=== PATIENT | female | born 1945 | race Caucasian/White ===

== ENCOUNTER → 2024-09-07 | Outpatient (CLI) | payer MEDICARE, OTHER ==
[2024-09-07 13:13] LABS: BASOPHILS ABSOLUTE AUTO 0.03 K/mm3 (0.00-0.23); BASOPHILS PERCENT AUTO 1 % (0-2); EOSINOPHILS ABSOLUTE AUTO 0.28 K/mm3 (0.00-0.68); EOSINOPHILS PERCENT AUTO 6 % (0-6); Hematocrit 40.4 % (33.0-51.0); Hemoglobin 13.5 g/dL (11.5-16.0); IMMATURE GRAN ABSOLUTE AUTO 0.01 K/mm3 (0.00-0.10); IMMATURE GRAN PERCENT AUTO 0 % (0-1); LYMPHOCYTES ABSOLUTE AUTO 1.13 K/mm3 (0.84-5.20); LYMPHOCYTES PERCENT AUTO 23 % (21-46); MONOCYTES ABSOLUTE AUTO 0.31 K/mm3 (0.16-1.47); MONOCYTES PERCENT AUTO 6 % (4-13); Mean Corpuscular HGB 30.3 pg (26.0-34.0); Mean Corpuscular HGB Conc 33.4 g/dL (31.5-36.5); Mean Corpuscular Volume 91 fL (80-100); Mean Platelet Volume 8.5 fL (9.1-12.4); NEUTROPHILS ABSOLUTE AUTO 3.14 K/mm3 (1.96-9.15); NEUTROPHILS PERCENT AUTO 64 % (41-73); Platelet Count 191 K/mm3 (150-400); RDW Coefficient Variation 12.1 % (11.7-14.2); Red Blood Cell Count 4.45 M/mm3 (3.80-5.20)
[2024-09-07 13:22] LABS: Albumin, Blood 3.8 g/dL (3.4-5.0); Albumin/Globulin Ratio 1.2 (0.8-1.8); Bilirubin, Total 0.4 mg/dL (0.1-1.0); Bun/Creatinine Ratio 10.3 (12.0-20.0); Creatinine, Blood 1.16 mg/dL (0.40-1.00); Globulin, Blood 3.2 g/dL (2.2-4.0); Potassium, Blood 3.8 mmol/L (3.5-5.5)
== END | disposition home or self-care (01) ==
LOC: LAB 13:08 → LAB SHORT 13:08
DX: K92.1 Melena (principal); R33.9 Retention of urine, unspecified
CPT/HCPCS: 80053; 83690; 85025; 87077; 87086; 87186

== ENCOUNTER 2024-11-10 09:43 | Day surgery (SDC) | payer MEDICARE, OTHER ==
[~2024-11-10] VITALS: Ht 157.5 cm; Wt 69.3 kg
[~2024-11-10 09:43] MED LIST: Lactated Ringer's 1,000 ML IV ONE; propofoL 50 ML IV ONE
[2024-11-10] MEDS ORDERED: Lactated Ringer's 1,000 ML IV ONE (10:21)
[2024-11-10] MEDS ORDERED: HYDCHL25 (10:34)
[2024-11-10] MEDS ORDERED: GABA600 (10:34)
[2024-11-10] MEDS ORDERED: THYR60 (10:35)
[2024-11-10] MEDS ORDERED: TIZA4 (10:37)
[2024-11-10] MEDS ORDERED: OMEP20ER PO (10:38)
[2024-11-10] MEDS ORDERED: Bentyl10 MG (10:40)
== END 2024-11-10 12:18 | disposition home or self-care (01) ==
LOC: ORSCSDS 09:43
PROVIDERS: Specialist
PROC: 0DB78ZX Excision of Stomach, Pylorus, Via Natural or Artificial Opening Endoscopic, Diagnostic (ICD-10-PCS; principal; 2024-11-10 11:15)
PROC: 0DB98ZX Excision of Duodenum, Via Natural or Artificial Opening Endoscopic, Diagnostic (ICD-10-PCS; principal; 2024-11-10 11:15)
PROC: 0DBE8ZX Excision of Large Intestine, Via Natural or Artificial Opening Endoscopic, Diagnostic (ICD-10-PCS; principal; 2024-11-10 11:15)
DX: R19.7 Diarrhea, unspecified (principal); K92.1 Melena; Z86.0101 Personal history of adenomatous and serrated colon polyps; Z80.0 Family history of malignant neoplasm of digestive organs; K21.9 Gastro-esophageal reflux disease without esophagitis; R10.12 Left upper quadrant pain; R10.13 Epigastric pain; R11.2 Nausea with vomiting, unspecified; R93.3 Abnormal findings on diagnostic imaging of other parts of digestive tract; K44.9 Diaphragmatic hernia without obstruction or gangrene; L53.9 Erythematous condition, unspecified; K64.8 Other hemorrhoids; Z79.899 Other long term (current) drug therapy; J44.9 Chronic obstructive pulmonary disease, unspecified; Z85.850 Personal history of malignant neoplasm of thyroid
CPT/HCPCS: 88305; 88342; J2704; J7120

== ENCOUNTER 2025-04-26 10:15 | Emergency (ER) | payer MEDICARE, OTHER ==
[~2025-04-26] VITALS: Ht 154.9 cm; Wt 65.8 kg
[~2025-04-26 10:15] MED LIST changes: +Bentyl10 MG; +GABA600; +HYDCHL25; -Lactated Ringer's 1,000 ML IV ONE; +OMEP20ER PO; +THYR60; +TIZA4; -propofoL 50 ML IV ONE
[2025-04-26 10:47] LABS: Calcium, Ionized (POC) 1.16 mmol/L (1.10-1.46); Chloride (POC) 101 mmol/L (98-108); Creatinine (POC) 0.9 mg/dL (0.6-1.0); Glucose (ISTAT POC) 104 mg/dL (70-99); Hematocrit (POC) 42.0 % (36.0-46.0); Hemoglobin (POC) 14.3 g/dL (12.0-16.0); Potassium (POC) 3.5 mmol/L (3.5-5.5); Sodium (POC) 140 mmol/L (135-148); Total CO2 (POC) 26 mmol/L (21-32)
[2025-04-26 10:51] LABS: BASOPHILS ABSOLUTE AUTO 0.04 K/mm3 (0.00-0.23); BASOPHILS PERCENT AUTO 1 % (0-2); EOSINOPHILS ABSOLUTE AUTO 0.35 K/mm3 (0.00-0.68); EOSINOPHILS PERCENT AUTO 5 % (0-6); Hematocrit 42.9 % (33.0-51.0); Hemoglobin 14.7 g/dL (11.5-16.0); IMMATURE GRAN ABSOLUTE AUTO 0.02 K/mm3 (0.00-0.10); IMMATURE GRAN PERCENT AUTO 0 % (0-1); LYMPHOCYTES ABSOLUTE AUTO 2.26 K/mm3 (0.84-5.20); LYMPHOCYTES PERCENT AUTO 31 % (21-46); MONOCYTES ABSOLUTE AUTO 0.45 K/mm3 (0.16-1.47); MONOCYTES PERCENT AUTO 6 % (4-13); Mean Corpuscular HGB Conc 34.3 g/dL (31.5-36.5); Mean Corpuscular Volume 90 fL (80-100); NEUTROPHILS ABSOLUTE AUTO 4.19 K/mm3 (1.96-9.15); NEUTROPHILS PERCENT AUTO 57 % (41-73); NRBC ABSOLUTE 0.00 K/mm3 (0.00-0.02); NRBC Auto 0.0 /100 WBC (0.0-0.2); Platelet Count 255 K/mm3 (150-400); RDW Coefficient Variation 12.9 % (11.7-14.2); RDW Standard Deviation 42.4 fL (35.1-46.3)
[2025-04-26 13:11] LABS: Alanine Aminotransfer (ALT/SGP 25.0 U/L (12-78); Albumin, Blood 4.0 g/dL (3.4-5.0); Albumin/Globulin Ratio 1.3 (0.8-1.8); Anion Gap 14.0 mmol/L (3-11); Aspartate Aminotrans (AST/SGOT 25.0 U/L (12-37); Bilirubin, Total 0.8 mg/dL (0.1-1.0); Blood Urea Nitrogen 14.0 mg/dL (8-24); CO2, Blood 28.0 mmol/L (21-32); Calcium, Blood 9.8 mg/dL (8.5-10.1); Chloride, Blood 103.0 mmol/L (98-108); Creatinine, Blood 0.95 mg/dL (0.40-1.00); Globulin, Blood 3.1 g/dL (2.2-4.0); Glucose, Blood 103.0 mg/dL (70-99); Potassium, Blood 3.6 mmol/L (3.5-5.5); Sodium, Blood 141.0 mmol/L (136-145); Total Protein, Blood 7.1 g/dL (6.4-8.2)
[2025-04-26 14:40] LABS: Source, Urine Clean Catch
[2025-04-26 15:04] LABS: Bilirubin, Urine Neg (Neg); Color, Urine Yellow (P-Yellow); Glucose Qualitative, Urine Neg (Neg); Ketones, Urine Neg (Neg); Leukocyte Esterase, Urine 1+ (Neg); Protein, Urine 2+ (Neg); Specific Gravity, Urine 1.010 (1.003-1.022); Urobilinogen, Urine NORM (Normal)
== END 2025-04-26 16:49 | disposition home or self-care (01) ==
LOC: ER 10:15
PROVIDERS: Physician Assistant
DX: R53.1 Weakness (principal); R07.9 Chest pain, unspecified; R10.13 Epigastric pain; Z88.1 Allergy status to other antibiotic agents; Z88.5 Allergy status to narcotic agent; Z88.8 Allergy status to other drugs, medicaments and biological substances; Z79.899 Other long term (current) drug therapy
CPT/HCPCS: 71046; 80047; 80053; 81001; 83690; 83880; 84484; 85014; 85025; 87086; 93005; 93010; 99285-25

== ENCOUNTER → 2025-05-03 | Outpatient (CLI) | payer MEDICARE, OTHER | END | disposition home or self-care (01) | LOC: LAB SHORT 09:40 → LAB 09:40 | DX: R10.13 Epigastric pain (principal) | CPT/HCPCS: 87338 ==

== ENCOUNTER → 2025-06-15 | Outpatient (CLI) | payer MEDICARE, OTHER ==
[2025-06-15 15:29] LABS: Bacterial Vaginosis PCR Negative (NEGATIVE); Candida Group, PCR NOT DETECTED (NOT DETECT)
[2025-06-15 15:30] LABS: Candida glabrata-krusei, PCR DETECTED (NOT DETECT)
== END | disposition home or self-care (01) ==
LOC: LAB SHORT 10:16 → LAB 10:16
PROVIDERS: Family Medicine
DX: L90.0 Lichen sclerosus et atrophicus (principal)
CPT/HCPCS: 81515

== ENCOUNTER 2025-08-01 11:47 | Day surgery (SDC) | payer MEDICARE, OTHER ==
[2025-08-01] VITALS (17 sets, daily range): BP systolic 113–153; BP diastolic 69–102
[~2025-08-01] VITALS: Ht 154.9 cm; Wt 68.0 kg
[~2025-08-01 11:47] MED LIST changes: +ALBU90OI INH; +ALPR.5 PO; +CHOLESTYRAMI239.4 G1 PO; +CLOBETASOL EMOL15 G1; +HYDCOR2.5C; +PANT40 PO; +STIOLTO RESPIMAT4 G1 INH; +SUCR1 PO
[2025-08-01] MEDS ORDERED: LOSA25 PO (12:14)
--- NOTE | 2025-08-01 13:21 | NUR ---
08/01/25 1321 Rosa Harp CONFIRMED AND REVIEWED H&P, MEDCICATIONS, ALLERGIES, MEDICAL HISTORY, RESPIRATORY HISTORY, VITAL SIGNS, 3-LEAD EKG, CONSENTS, AND PHYSICIAN ORDERS. PATIENT CONFIRMS NPO STATUS AND AGREES WITH SCHEDULED PROCEDURE. MONITOR INTACT WITH CONTINUOUS PULSE OXIMETRY, CAPNOGRAPHY, 3-LEAD EKG, INTERMITTENT BP. SUPPLEMENTAL O2 TO BE TITRATED THROUGHOUT PROCEDURE TO MAINTAIN O2 SATURATION ABOVE 90%. PATIENT DETERMINED TO BE ASA APPROPRIATE FOR PROPOFOL SEDATION PRIOR TO START OF PROCEDURE BY DR. HOLT
--- NOTE | 2025-08-01 13:58 | NUR ---
History, Chart, Medications and Allergies reviewed before start of procedure. Ambulatory in Day Surgery WITH STEADY GAIT TO RESTROOM STANDBY ASSISTANCE. Discharge instructions reviewed with patient. Patient verbalizes understanding. Copy given to patient to take home. ALL BELONGINGS RETURNED TO PT INCLUDING GLASSES AND ONE EARRING. OTHER EARRING REMAINED IN PT'S EAR. Discharged via wheelchair to private car for ride home WITH FRIEND.
== END 2025-08-01 23:21 | disposition home or self-care (01) ==
LOC: ORSCMMR 11:47 → ORD 14:30 → ORSCMMR 14:30 → ORD 08-08 14:00
PROVIDERS: Family Medicine
PROC: 0DB48ZX Excision of Esophagogastric Junction, Via Natural or Artificial Opening Endoscopic, Diagnostic (ICD-10-PCS; principal; 2025-08-01 13:15)
PROC: 0DB68ZX Excision of Stomach, Via Natural or Artificial Opening Endoscopic, Diagnostic (ICD-10-PCS; principal; 2025-08-01 13:15)
DX: R10.13 Epigastric pain (principal); K31.7 Polyp of stomach and duodenum; K29.70 Gastritis, unspecified, without bleeding; K44.9 Diaphragmatic hernia without obstruction or gangrene; I10 Essential (primary) hypertension; J44.9 Chronic obstructive pulmonary disease, unspecified; M79.7 Fibromyalgia; E78.5 Hyperlipidemia, unspecified; Z79.899 Other long term (current) drug therapy; Z87.891 Personal history of nicotine dependence
CPT/HCPCS: 88305; 88342; J2704; J7120